=== PATIENT | male | born 1980 | race Caucasian/White ===

== ENCOUNTER → 2024-08-24 | Outpatient (CLI) | payer OTHER ==
[~2024-08-24] MED LIST: ASPI81CH PO; CRUTCH4 USE; Cyclobenzaprine5 MG PO; DIPATR PO; DOXY100 PO; ERGO400 PO; ESCI5 PO; Flomax0.4 MG PO; LORA.5 PO; LORA10ER PO; Loperamide2 MG PO; Norco 5-325 Ta1 EACH PO; ONDA8ODT MM; OXYACE5T PO; PROM25 PO; Pepcid40 MG PO; Percocet 5-3251 EACH PO; RXONDA4ODT MM; TESTOSTERONE MISC; TRAM50 PO; VICODIN; Zofran Odt4 MG SL; [UNRECOGNIZED DRUG - REMARK]
[2024-08-24 17:11] LABS: Albumin, Blood 4.2 g/dL (3.4-5.0); Bilirubin, Total 1.1 mg/dL (0.1-1.0); Bun/Creatinine Ratio 6.3 (12.0-20.0); Calcium, Blood 9.9 mg/dL (8.5-10.1); Creatinine, Blood 1.44 mg/dL (0.60-1.20); Globulin, Blood 4.2 g/dL (2.2-4.0); Potassium, Blood 3.9 mmol/L (3.5-5.5); Total Protein, Blood 8.4 g/dL (6.4-8.2); Uric Acid, Blood 8.1 mg/dL (3.5-7.2)
[2024-08-24 17:37] LABS: BASOPHILS ABSOLUTE AUTO 0.02 K/mm3 (0.00-0.23); BASOPHILS PERCENT AUTO 0 % (0-2); EOSINOPHILS ABSOLUTE AUTO 0.02 K/mm3 (0.00-0.68); EOSINOPHILS PERCENT AUTO 0 % (0-6); Hematocrit 49.4 % (37.0-53.0); Hemoglobin 17.1 g/dL (13.5-17.5); IMMATURE GRAN ABSOLUTE AUTO 0.04 K/mm3 (0.00-0.10); IMMATURE GRAN PERCENT AUTO 0 % (0-1); LYMPHOCYTES ABSOLUTE AUTO 2.07 K/mm3 (0.84-5.20); LYMPHOCYTES PERCENT AUTO 16 % (21-46); MONOCYTES ABSOLUTE AUTO 0.79 K/mm3 (0.16-1.47); MONOCYTES PERCENT AUTO 6 % (4-13); Mean Corpuscular HGB 29.9 pg (26.0-34.0); Mean Corpuscular HGB Conc 34.6 g/dL (31.5-36.5); Mean Corpuscular Volume 87 fL (80-100); NEUTROPHILS ABSOLUTE AUTO 9.77 K/mm3 (1.96-9.15); NEUTROPHILS PERCENT AUTO 77 % (41-73); Platelet Count 280 K/mm3 (150-400); RDW Coefficient Variation 11.9 % (11.7-14.2); Red Blood Cell Count 5.71 M/mm3 (4.30-5.90); White Blood Cell Count 12.71 K/mm3 (4.00-11.30)
== END ==
LOC: LAB 16:55 → LAB SHORT 16:55
PROVIDERS: Chiropractor
DX: M10.9 Gout, unspecified (principal); R55 Syncope and collapse; R53.83 Other fatigue
CPT/HCPCS: 80053; 84443; 84484; 84550; 85025; 85379